=== PATIENT | female | born 2000 | race Native Hawaiian/Other Pacific Islander ===

== ENCOUNTER 2018-09-21 19:35 | Inpatient (IN) ==
[2018-09-21] MEDS ORDERED: STADOL IV PRN (19:55)
[2018-09-21] MEDS ORDERED: LR 500 ML IV ONE (19:55)
[2018-09-21 20:02] LABS: URINE SOURCE VOIDED
[2018-09-21] MEDS ORDERED: ZOFRAN IV PRN (20:08)
[2018-09-21 20:17] LABS: BILIRUBIN URINE NEGATIVE (NEGATIVE); BLOOD URINE NEGATIVE (NEGATIVE); CLARITY CLEAR (CLEAR); COLOR YELLOW; GLUCOSE URINE NEGATIVE (NEGATIVE); KETONE URINE NEGATIVE (NEGATIVE); SP GRAVITY URINE 1.005
[2018-09-21 20:18] LABS: LEUKOCYTES URINE 1+ (NEGATIVE); NITRITE URINE NEGATIVE (NEGATIVE); PROTEIN URINE NEGATIVE (NEGATIVE); UROBILINOGEN URINE NORMAL
[2018-09-21 20:21] LABS: UR AMPHETAMINES QUAL NONE DETECTED (NONE DETECT); UR BARBITUATES QUAL NONE DETECTED (NONE DETECT); UR BENZODIAZEPIN QUAL NONE DETECTED (NONE DETECT); UR CANNABINOIDS QUAL NONE DETECTED (NONE DETECT); UR COCAINE QUAL NONE DETECTED (NONE DETECT); UR METHADONE QUAL NONE DETECTED (NONE DETECT); UR METHAMPHETAMINE QUAL NONE DETECTED (NONE DETECT); UR OPIATES QUAL NONE DETECTED (NONE DETECT); UR OXYCODONE QUAL NONE DETECTED (NONE DETECT); UR PCP QUAL NONE DETECTED (NONE DETECT); UR PROPOXYPHENE QUAL NONE DETECTED (NONE DETECT); UR TCA QUAL NONE DETECTED (NONE DETECT)
[2018-09-21 20:37] LABS: BASO# 0.06 X1000 (0.0-0.2); BASO% 0.6 % (0.0-0.8); EOS# 1.48 X1000 (0.0-0.7); EOS% 15.1 % (0.0-10.0); HEMATOCRIT 35.3 % (37.0-47.0); HEMOGLOBIN 11.8 g/dL (12.0-16.0); IMM GRAN# 0.04 X1000 (0.0-0.04); IMM GRAN% 0.4 % (0.0-0.5); LYMPH# 2.31 X1000 (1.2-3.4); LYMPH% 23.5 % (20.5-51.1); MCH 29.6 PG (27-31); MCHC 33.4 g/dL (33-37); MCV 88.7 FL (81-99); MONO# 0.73 X1000 (0.11-0.59); MONO% 7.4 % (1.7-9.3); MPV 8.2 FL (7.4-10.4); NEUT# 5.19 X1000 (1.4-6.5); PLT 299 X1000 (130-400); RBC 3.98 XMIL (4.2-5.4); WBC 9.81 X1000 (4.8-10.8)
[2018-09-21] MEDS: LR 1,000 ML IV SCH (20:43)
[2018-09-21] MEDS: CYTOTEC VAG SCH (20:43)
[2018-09-21 21:10] LABS: HEMOGLOBIN A1C 4.7 % (4.8-6.0); RPR NON-REACTIVE (NONREACTIVE)
[2018-09-21 21:21] LABS: RAPID HIV PRESUMPTIVE NEGATIVE
[2018-09-21 22:19] LABS: RUBELLA SCREEN IMMUNE (IMMUNE)
[2018-09-22] MEDS ORDERED: SODIUM CHLORIDE 0.9% 40 ML ONE (03:14)
[2018-09-22] MEDS ORDERED: SODIUM CHLORIDE 0.9% INJ ONE (03:20)
[2018-09-22] MEDS ORDERED: TYLENOL PO PRN ×2 (03:20→13:57)
--- NOTE | 2018-09-22 03:28 | OB/GYN PROGRESS NOTE ---
Progress Note OB - . Patient Problems: Current Active Problems Problem Status Onset demise, greater than 22 weeks, antepartum, single gestation Acute OB Progress Note: Vital Signs - 24 hr 09/21/18 19:35 09/21/18 20:35 09/21/18 21:35 Temperature 97.5 F L 97.6 F 97.5 F L Pulse Rate 110 H 90 93 H Respiratory Rate 18 16 16 Blood Pressure 106/70 99/61 107/70 O2 Sat by Pulse Oximetry 100 100 100 09/21/18 22:35 09/21/18 23:35 Temperature 97.6 F 97.8 F Pulse Rate 93 H 86 Respiratory Rate 18 16 Blood Pressure 105/68 107/58 O2 Sat by Pulse Oximetry 99 99 Laboratory Results - last 24 hr 09/21/18 09/21/18 09/21/18 19:30 19:41 20:29 WBC 9.81 RBC 3.98 L Hgb 11.8 L Hct 35.3 L MCV 88.7 MCH 29.6 MCHC 33.4 RDW Std Deviation 14.0 Plt Count 299 MPV 8.2 Immature Gran % (Auto) 0.4 Neut % (Auto) 53.0 Lymph % (Auto) 23.5 [place] % (Auto) 7.4 Eos % (Auto) 15.1 H Baso % (Auto) 0.6 Immature Gran # (Auto) 0.04 Neut # (Auto) 5.19 Lymph # (Auto) 2.31 [place] # (Auto) 0.73 H Eos # (Auto) 1.48 H Baso # (Auto) 0.06 Glucose Estimat Average Glucose Hemoglobin A1c Urine Source VOIDED Urine Color YELLOW Urine Clarity CLEAR Urine pH 7.0 Ur Specific [place] 1.005 Urine Protein NEGATIVE Urine Ketones NEGATIVE Urine Blood NEGATIVE Urine Nitrite NEGATIVE Urine Bilirubin NEGATIVE Urine Urobilinogen NORMAL Urine WBC 1+ A Urine Glucose NEGATIVE Urine Opiates Screen NONE DETECTED Ur Oxycodone Screen NONE DETECTED Urine Methadone Screen NONE DETECTED U Propoxyphene Qual NONE DETECTED Ur Barbituates Screen NONE DETECTED Ur Tricyclics Screen NONE DETECTED Ur Phencyclidine Scrn NONE DETECTED Ur Amphetamines Screen NONE DETECTED U Methamphetamines Scrn NONE DETECTED U Benzodiazepines Scrn NONE DETECTED Urine Cocaine Screen NONE DETECTED U Cannabinoids Screen NONE DETECTED RPR HIV 1&2 Antibody Rapid Rubella Immunity Screen Blood Type Antibody Screen 09/21/18 09/21/18 09/21/18 20:29 20:29 20:29 WBC RBC Hgb Hct MCV MCH MCHC RDW Std Deviation Plt Count MPV Immature Gran % (Auto) Neut % (Auto) Lymph % (Auto) [place] % (Auto) Eos % (Auto) Baso % (Auto) Immature Gran # (Auto) Neut # (Auto) Lymph # (Auto) [place] # (Auto) Eos # (Auto) Baso # (Auto) Glucose 93 Estimat Average Glucose Hemoglobin A1c Urine Source Urine Color Urine Clarity Urine pH Ur Specific [place] Urine Protein Urine Ketones Urine Blood Urine Nitrite Urine Bilirubin Urine Urobilinogen Urine WBC Urine Glucose Urine Opiates Screen Ur Oxycodone Screen Urine Methadone Screen U Propoxyphene Qual Ur Barbituates Screen Ur Tricyclics Screen Ur Phencyclidine Scrn Ur Amphetamines Screen U Methamphetamines Scrn U Benzodiazepines Scrn Urine Cocaine Screen U Cannabinoids Screen RPR NON-REACTIVE HIV 1&2 Antibody Rapid PRESUMPTIVE NEGATIVE Rubella Immunity Screen IMMUNE Blood Type B POSITIVE Antibody Screen NEGATIVE 09/21/18 20:29 WBC RBC Hgb Hct MCV MCH MCHC RDW Std Deviation Plt Count MPV Immature Gran % (Auto) Neut % (Auto) Lymph % (Auto) [place] % (Auto) Eos % (Auto) Baso % (Auto) Immature Gran # (Auto) Neut # (Auto) Lymph # (Auto) [place] # (Auto) Eos # (Auto) Baso # (Auto) Glucose Estimat Average Glucose 88 Hemoglobin A1c 4.7 L Urine Source Urine Color Urine Clarity Urine pH Ur Specific [place] Urine Protein Urine Ketones Urine Blood Urine Nitrite Urine Bilirubin Urine Urobilinogen Urine WBC Urine Glucose Urine Opiates Screen Ur Oxycodone Screen Urine Methadone Screen U Propoxyphene Qual Ur Barbituates Screen Ur Tricyclics Screen Ur Phencyclidine Scrn Ur Amphetamines Screen U Methamphetamines Scrn U Benzodiazepines Scrn Urine Cocaine Screen U Cannabinoids Screen RPR HIV 1&2 Antibody Rapid Rubella Immunity Screen Blood Type Antibody Screen HPI: Pt seen and examined s/p cytotec 400 mcg PV. Denies CTX pain, LOF, VB. Pt resting comfortably in bed and supported by FOB. Denies F/C/N/V. VS: Temp 99.3, HR 98 PHYSICAL EXAM: GEN: NAD ABD: Gravid NTTP SVE: 1-2cm/50%/ -3, black amniotic fluid s/p AROM TOCO: q 1-1.5 min ASSESSMENT: 18yo with demise at 36w (measuring 30 weeks) PLAN: -IOL: s/p cytotec 400 mcg PV x 1 dose--> tacysystole. -AROM: black amniotic fluid noted -if no cervical change will place Cook's balloon -Tylenol 1000mg PO given for low grade temp -con't TOCO monitoring
[2018-09-22] MEDS ORDERED: PITOCIN 30 UNITS/NS 30 UNIT/500 ML IV.SOLN ONE (05:40)
--- NOTE | 2018-09-22 05:59 | OB/GYN PROGRESS NOTE ---
Progress Note OB - . Patient Problems: Current Active Problems Problem Status Onset demise, greater than 22 weeks, antepartum, single gestation Acute OB Progress Note: Vital Signs - 24 hr 09/21/18 19:35 09/21/18 20:35 09/21/18 21:35 Temperature 97.5 F L 97.6 F 97.5 F L Pulse Rate 110 H 90 93 H Respiratory Rate 18 16 16 Blood Pressure 106/70 99/61 107/70 O2 Sat by Pulse Oximetry 100 100 100 09/21/18 22:35 09/21/18 23:35 Temperature 97.6 F 97.8 F Pulse Rate 93 H 86 Respiratory Rate 18 16 Blood Pressure 105/68 107/58 O2 Sat by Pulse Oximetry 99 99 Laboratory Results - last 24 hr 09/21/18 09/21/18 09/21/18 19:30 19:41 20:29 WBC 9.81 RBC 3.98 L Hgb 11.8 L Hct 35.3 L MCV 88.7 MCH 29.6 MCHC 33.4 RDW Std Deviation 14.0 Plt Count 299 MPV 8.2 Immature Gran % (Auto) 0.4 Neut % (Auto) 53.0 Lymph % (Auto) 23.5 [place] % (Auto) 7.4 Eos % (Auto) 15.1 H Baso % (Auto) 0.6 Immature Gran # (Auto) 0.04 Neut # (Auto) 5.19 Lymph # (Auto) 2.31 [place] # (Auto) 0.73 H Eos # (Auto) 1.48 H Baso # (Auto) 0.06 Glucose Estimat Average Glucose Hemoglobin A1c Urine Source VOIDED Urine Color YELLOW Urine Clarity CLEAR Urine pH 7.0 Ur Specific [place] 1.005 Urine Protein NEGATIVE Urine Ketones NEGATIVE Urine Blood NEGATIVE Urine Nitrite NEGATIVE Urine Bilirubin NEGATIVE Urine Urobilinogen NORMAL Urine WBC 1+ A Urine Glucose NEGATIVE Urine Opiates Screen NONE DETECTED Ur Oxycodone Screen NONE DETECTED Urine Methadone Screen NONE DETECTED U Propoxyphene Qual NONE DETECTED Ur Barbituates Screen NONE DETECTED Ur Tricyclics Screen NONE DETECTED Ur Phencyclidine Scrn NONE DETECTED Ur Amphetamines Screen NONE DETECTED U Methamphetamines Scrn NONE DETECTED U Benzodiazepines Scrn NONE DETECTED Urine Cocaine Screen NONE DETECTED U Cannabinoids Screen NONE DETECTED RPR HIV 1&2 Antibody Rapid Rubella Immunity Screen Blood Type Antibody Screen 09/21/18 09/21/18 09/21/18 20:29 20:29 20:29 WBC RBC Hgb Hct MCV MCH MCHC RDW Std Deviation Plt Count MPV Immature Gran % (Auto) Neut % (Auto) Lymph % (Auto) [place] % (Auto) Eos % (Auto) Baso % (Auto) Immature Gran # (Auto) Neut # (Auto) Lymph # (Auto) [place] # (Auto) Eos # (Auto) Baso # (Auto) Glucose 93 Estimat Average Glucose Hemoglobin A1c Urine Source Urine Color Urine Clarity Urine pH Ur Specific [place] Urine Protein Urine Ketones Urine Blood Urine Nitrite Urine Bilirubin Urine Urobilinogen Urine WBC Urine Glucose Urine Opiates Screen Ur Oxycodone Screen Urine Methadone Screen U Propoxyphene Qual Ur Barbituates Screen Ur Tricyclics Screen Ur Phencyclidine Scrn Ur Amphetamines Screen U Methamphetamines Scrn U Benzodiazepines Scrn Urine Cocaine Screen U Cannabinoids Screen RPR NON-REACTIVE HIV 1&2 Antibody Rapid PRESUMPTIVE NEGATIVE Rubella Immunity Screen IMMUNE Blood Type B POSITIVE Antibody Screen NEGATIVE 09/21/18 20:29 WBC RBC Hgb Hct MCV MCH MCHC RDW Std Deviation Plt Count MPV Immature Gran % (Auto) Neut % (Auto) Lymph % (Auto) [place] % (Auto) Eos % (Auto) Baso % (Auto) Immature Gran # (Auto) Neut # (Auto) Lymph # (Auto) [place] # (Auto) Eos # (Auto) Baso # (Auto) Glucose Estimat Average Glucose 88 Hemoglobin A1c 4.7 L Urine Source Urine Color Urine Clarity Urine pH Ur Specific [place] Urine Protein Urine Ketones Urine Blood Urine Nitrite Urine Bilirubin Urine Urobilinogen Urine WBC Urine Glucose Urine Opiates Screen Ur Oxycodone Screen Urine Methadone Screen U Propoxyphene Qual Ur Barbituates Screen Ur Tricyclics Screen Ur Phencyclidine Scrn Ur Amphetamines Screen U Methamphetamines Scrn U Benzodiazepines Scrn Urine Cocaine Screen U Cannabinoids Screen RPR HIV 1&2 Antibody Rapid Rubella Immunity Screen Blood Type Antibody Screen HPI: Pt seen and examined s/p cytotec 400 mcg PV x 1 and AROM. Reports CTX pain and LOF. Denies VB/F/C/N/V. VS: VSS, low grade temp resolved PHYSICAL EXAM: GEN: NAD ABD: Gravid NTTP SVE: 5cm/90%/ -3, black amniotic fluid s/p AROM TOCO: q 1-2 min US: confirmed vertex position, ?forebag vs. cephalic cystic abnormality ASSESSMENT: 18yo with demise at 36w (measuring 30 weeks) PLAN: -IOL: s/p cytotec 400 mcg PV x 1 dose--> tacysystole. -AROM: black amniotic fluid noted -Will start pitocin if no cervical change with re-assessment -s/p Tylenol 1000mg PO given for low grade temp. -anticipate vaginal delivery -Pt counseled on risks of D&C for placenta/POC insitu -con't TOCO monitoring
[2018-09-22] MEDS: STADOL IV PRN ×2 (06:01→12:01)
[2018-09-22] MEDS: CYTOTEC VAG SCH (06:30)
--- NOTE | 2018-09-22 07:35 | HISTORY AND PHYSICAL ---
HISTORY OF PRESENT ILLNESS: The patient is a 18-year-old at 36 weeks and 2 days based on last menstrual period, who presents to labor and delivery with complaint of decreased movement x2 weeks. Patient denies contractions, leakage of fluid, bleeding, fevers, chills, nausea, or vomiting. The patient also denies care for current . PAST MEDICAL HISTORY: None. SURGICAL HISTORY: None. MEDICATIONS: None. ALLERGIES: No known drug allergies. SOCIAL HISTORY: Denies tobacco, alcohol, or drug use. PHYSICAL EXAMINATION: VITAL SIGNS: Stable. GENERAL: No acute distress. ABDOMEN: Gravid, nontender to palpation. Fundal height 30 cm. VAGINAL EXAM: One, thick, high, and soft. IMAGING: Ultrasound with negative heart rate, vertex position, negative movement. ASSESSMENT: The patient is a 18-year-old 2 para 1 at 36 weeks and 2 days measuring 30 weeks by fundal height with a second trimester demise. PLAN: 1. Admit to labor and delivery. 2. Routine labs ordered. 3. Induce with Cytotec 400 mcg q.4 h. 4. IV pain meds/epidural p.r.n. 5. Continuous [place] monitoring.
[2018-09-22] MEDS ORDERED: XYLOCAINE-MPF 1% INJ ONE (08:23)
--- NOTE | 2018-09-22 09:38 | PROGRESS NOTE ---
DATE: 09/22/2018 SUBJECTIVE: Patient is resting comfortably. OBJECTIVE: She is having regular contractions. Cervix is 6/75/-1. ASSESSMENT: Progressing. PLAN: Anticipate vaginal delivery. cc: Randall Gilbert MD
[2018-09-22] MEDS: LR 1,000 ML IV SCH (10:02)
[2018-09-22] MEDS ORDERED: KEFZOL 1 GM/D5W 1 GM/50 ML IVPB IV PRN (13:57)
[2018-09-22] MEDS ORDERED: REGLAN PO ONE (13:57)
[2018-09-22] MEDS ORDERED: ZOFRAN IV PRN (13:57)
[2018-09-22] MEDS ORDERED: STADOL IV PRN (13:57)
[2018-09-22] MEDS ORDERED: PEPCID PO ONE (13:57)
[2018-09-22] MEDS ORDERED: PEPCID PO PRN (13:57)
[2018-09-22] MEDS ORDERED: PEPCID IV PRN (13:57)
[2018-09-22] MEDS ORDERED: LR 500 ML IV ONE (13:57)
[2018-09-22] MEDS ORDERED: PITOCIN 30 UNITS/NS 30 UNIT/500 ML IV.SOLN IV SCH ×2 (14:00→14:30)
[2018-09-22] MEDS ORDERED: SODIUM CHLORIDE 0.9% INJ SCH (14:00)
[2018-09-22] MEDS ORDERED: LR 1,000 ML IV SCH (14:00)
[2018-09-22] MEDS ORDERED: ATARAX PO PRN (14:22)
[2018-09-22] MEDS ORDERED: MOTRIN PO PRN (14:22)
[2018-09-22] MEDS ORDERED: PITOCIN IM PRN (14:22)
[2018-09-22] MEDS ORDERED: M-M-R II VACCINE SUBQ ONE (14:22)
[2018-09-22] MEDS ORDERED: AMBIEN PO PRN (14:22)
[2018-09-22] MEDS ORDERED: CYTOTEC PO PRN (14:22)
[2018-09-22] MEDS ORDERED: BOOSTRIX VACCINE IM ONE (14:22)
[2018-09-22] MEDS ORDERED: PERI MEDS (DERMOPLAST/NUPERCAINAL/TUCKS) MISC PRN (14:22)
[2018-09-22] MEDS ORDERED: BENADRYL IV PRN (14:22)
[2018-09-22] MEDS ORDERED: BENADRYL PO PRN (14:22)
[2018-09-22] MEDS ORDERED: HYDROXYZINE IM PRN (14:22)
[2018-09-22] MEDS ORDERED: NORCO-5 PO PRN (14:22)
[2018-09-22] MEDS ORDERED: PITOCIN 20 UNITS/NS 20 UNITS/1,000 ML IV.SOLN IV SCH (14:30)
[2018-09-22 20:20] LABS: HIV ANTIBODY SCREEN SEE COMMENTS
[2018-09-22] MEDS ORDERED: PERICOLACE PO SCH (21:00)
[2018-09-23 07:01] LABS: BASO# 0.07 X1000 (0.0-0.2); BASO% 0.5 % (0.0-0.8); EOS# 1.26 X1000 (0.0-0.7); HEMATOCRIT 32.2 % (37.0-47.0); HEMOGLOBIN 10.6 g/dL (12.0-16.0); IMM GRAN# 0.03 X1000 (0.0-0.04); IMM GRAN% 0.2 % (0.0-0.5); LYMPH# 2.91 X1000 (1.2-3.4); LYMPH% 20.7 % (20.5-51.1); MCH 29.1 PG (27-31); MCHC 32.9 g/dL (33-37); MCV 88.5 FL (81-99); MONO# 1.06 X1000 (0.11-0.59); MONO% 7.5 % (1.7-9.3); MPV 8.6 FL (7.4-10.4); NEUT# 8.71 X1000 (1.4-6.5); NEUT% 62.1 % (42.2-75.2); PLT 292 X1000 (130-400); RBC 3.64 XMIL (4.2-5.4); RDW 14.1 % (11.5-14.5); WBC 14.04 X1000 (4.8-10.8)
--- NOTE | 2018-09-23 07:42 | DISCHARGE SUMMARY ---
ADMISSION DATE: 09/21/2018 DISCHARGE DATE: 09/23/2018 DISCHARGE DIAGNOSES: 1. At 36 to 37 weeks gestation. 2. No care. 3. demise. SUMMARY: A 18-year-old, 2, para 1, who presented at approximately 36 to 37 weeks gestation complaining of decreased movement for 2 weeks. She was found to have a demise. Her labor was induced by Cytotec initially and then oxytocin, and she was delivered of a stillborn female without complications. There were no abnormalities grossly noted of the and the placenta. Her course was uneventful. Hemoglobin was 11.8 antepartum and 10.6 . Other labs included normal platelets, glucose, hemoglobin A1c, urinalysis, urine drug screen, RPR, HIV, and she was rubella immune. On physical exam on the day of discharge, the fundus was nontender. The patient had remained afebrile. Her bleeding was normal. She was discharged home in good condition on the morning of hospital day #2. DIET: Regular. ACTIVITY: Pelvic rest. MEDICATIONS: None. FOLLOWUP: Will be with Dr. Up in 6 weeks. cc: Randall Gilbert MD
[2018-09-23 08:46] VITALS: BP 89/52
[2018-09-23] MEDS ORDERED: FLU VACCINE IM ONE (09:00)
[2018-09-23 13:10] LABS: HEPATITIS B SURFACE ANTIGEN SEE COMMENTS
--- NOTE | 2018-09-24 04:12 | OPERATIVE NOTE ---
PROCEDURE DATE : DELIVERY NOTE: The patient reached complete dilation. She was prepped and draped with Hibiclens and foot stirrups. With adequate pushing, she delivered a nonviable female . The perineum was intact. There were no nuchal cords. The placenta delivered spontaneously and intact. On examination of the fetus, skin--extensive maceration and peeling. HEENT: No apparent abnormalities of the eye, nose or mouth. There was a large amount of scalp edema. Chest: Normal appearing. Abdomen: Normal appearing with normal cord insertion. Back: Normal appearing. External genitalia: Normal female genitalia. Anus appeared patent. Extremities: Normal appearing. Examination of the placenta: This appeared to be a normal appearing third trimester placenta. There were no knots in the cord. Amniotic was dark brown and bloody. ESTIMATED BLOOD LOSS: 200 mL. Procedure well tolerated. cc: Randall Gilbert MD
== END 2018-09-23 13:25 | disposition home or self-care (01) | DRG 807 ==
LOC: P.OPLD 19:35 → P.LD 19:39
PROVIDERS: ADMIT Obstetrics & Gynecology; ATTEND Obstetrics & Gynecology
CPT/HCPCS: 80104; 80301; 80305; 81003; 82947; 83036; 85025; 86592; 86701; 86703; 86762; 86850; 86900; 86901; 87340; 87389; 87390; 87491; 87591; 90686; 90715; A9270; G0431; G0434; G0477; J0595; J2590; J7120